=== PATIENT | female | born 2000 | race Caucasian/White ===

== ENCOUNTER 2023-08-17 14:56 | Emergency (ER) | payer BC, SELFPAY ==
[2023-08-17 14:59] VITALS: BP 122/82
[2023-08-17 15:18] LABS: % Basophils 0.6 % (0-2); % Eosinophils 7.3 % (0-6); % Immature Granulocytes 0.2 % (0-0.5); % Neutrophils 65.9 % (42.2-75.2); Absolute Eosinophils 0.5 10^3/uL (0-0.7); Absolute Lymphocytes 1.2 10^3/uL (1.2-3.4); Absolute Monocytes 0.5 10^3/uL (0.1-0.6); Absolute Neutrophils 4.3 10^3/uL (1.4-6.5); Hemoglobin 14.8 g/dL (12.0-16.0); Mean Corp Hgb Conc. 34.4 g/dL (33.0-37.0); Mean Corpuscular Hgb 30.9 pg (27.0-31.0); Mean Corpuscular Volume 89.8 fL (81.0-99.0); Mean Platelet Volume 9.5 fL (7.4-10.4); Nucleated Red Blood Cells % 0 %; Platelet Count 190 10^3/uL (130-400); Red Blood Cell Count 4.79 10^6/uL (4.20-5.40); Red Cell Dist. Width 11.9 % (11.5-14.5); White Blood Cell Count 6.5 10^3/uL (4.8-10.8)
[2023-08-17 15:32] LABS: HCG, Serum Qualitative Screen Negative
[2023-08-17 15:47] LABS: ALT (SGPT) 13 U/L (0-35); AST (SGOT) 25 U/L (14-36); Albumin 4.3 g/dl (3.5-5.0); Alkaline Phosphatase 44 U/L (38-126); Blood Urea Nitrogen 13 mg/dl (7-17); Calcium 8.9 mg/dl (8.4-10.2); Carbon Dioxide 27 mmol/L (22-30); Chloride 105 mmol/L (98-107); Glucose 99 mg/dl (70-99); Lipase 218 U/L (23-300); Potassium 4.1 mmol/L (3.5-5.1); Sodium 135 mmol/L (135-145); Total Bilirubin 0.5 mg/dl (0.2-1.3); Total Protein 6.9 g/dl (6.3-8.2); eGFR > 60.00
--- NOTE | 2023-08-17 16:04 | ED.GENMED ---
History of Present Illness
General
Chief Complaint: Abdominal Pain
Source: patient
Exam Limitations: none
Time Seen by Provider: 08/17/23 16:04
Nursing documentation reviewed up to this point in time: agreed with
Travel History
Have you had any contact with someone who has COVID-19?: No
Do you have any symptoms of coronavirus? Fever > 100 degrees, chills, cough, shortness of breath, sore throat, loss of taste or smell, muscle aches, or headache?: No
History of Present Illness
History of Present Illness:
23-year-old female with history of eating disorder that has improved since the end of her last semester in May 2023. presents stating for the past week she has had mid to left upper abdominal pain after eating for about 3 hours. Her appetite
is poor due to her symptoms.
There is no pain there now. She states when the pain comes its associated with radiating up from lower to mid back both sides, and burning up into her esophagus. She is also had a constant headache for the past 3 days and took Advil with no relief.
She feels constipated for the past week, her last bowel movement was 3 days ago
She saw her PCP yesterday and started on Prilosec 40 mg daily. She also had lab work yesterday and it ultrasound showing gallstones but no inflammation.
She states she has a friend who told her that she had ultrasound that only showed gallstones and had to have her gallbladder out anyway. She states her PCP told her she may need a CT scan. She states she just wishes she could eat.
Past History
Past History
ED Past Medical History: Other (Eating disorder)
ED Past Surgical History: Other (wisdom teeth)
Social History
Tobacco: Non-smoker
Alcohol: None
Drug: None
Personal: Single
Living: with family
Review of Systems
Review of Systems
Allergies reviewed?: Yes
All Other Systems: ROS reviewed and negative except as documented in HPI and ROS
Constitutional: Reports fatigue; Denies fever or chills
EENT: Denies sore throat
Respiratory: Denies cough or trouble breathing
Cardiac: Denies chest pain or syncope
ABD/GI: Reports abdominal pain, nausea, constipated and anorexia; Denies vomiting, diarrhea, bloody stools or black stools
: Reports no symptoms
Musculoskeletal: Reports no symptoms
Skin: Reports no symptoms
Neurological: Reports headache; Denies dizzy, weakness or numbness
Phy Exam
Physical Exam
Physical Exam:
GENERAL: No acute distress. A&Ox3.
CONSTITUTIONAL: Afebrile.
EYES: PERRL, conjunctivae normal
Neck: Supple
ENMT: moist mucus membranes, Pharynx nl
RESPIRATORY: Regular respirations, nonlabored, lungs clear.
CARDIOVASCULAR: Regular rate and rhythm, no murmurs, no rubs.
GI: Soft, nontender, normal BS
MUSCULOSKELETAL: Moves with ease. Well perfused.
SKIN: Warm, dry, pink
PSYCH: Normal mood and affect. Well kept, interactive and appropriate
NEUROLOGIC: Awake, alert and oriented. No focal neurological deficits
Course
Orders/Labs/Results
Orders:
Orders
08/17/23 15:05
Test Result ONCE
08/17/23 15:11
Complete Blood Count/With Diff Urgent
Comprehensive Metabolic Panel Urgent
HCG, Serum Qualitative Screen Urgent
Lipase Urgent
08/17/23 16:17
Iohexol [Omnipaque] See Protocol PO NOW STA
08/17/23 16:18
CT Abd/pel W Iv And Oral Contr Urgent
Comment:
Reason For Exam: upper abdominal pain
0.9% Sodium Chloride 1000 ml [Nss] 1,000 ml IV BOLUS
08/17/23 16:25
Ketorolac [Toradol] 15 mg IV NOW STA
08/17/23 18:00
Urinalysis Reflex To Culture Urgent
Date Specimen was Collected: 08/17/23
Time Specimen was Collected: 18:05
Abnormal Lab Results
08/17/23
15:11
Lymphocytes % 18.0 L %
(20.5-51.1)
Eosinophils % 7.3 H %
(0-6)
08/17/23 15:11
08/17/23 15:11
Vital Signs
Initial and Last Documented VS:
Initial Vital Signs
Temp Pulse Resp BP Pulse Ox
98.1 F 69 18 122/82 100
08/17/23 14:59 08/17/23 14:59 08/17/23 14:59 08/17/23 14:59 08/17/23 14:59
Last Documented Vital Signs
Temp Pulse Resp BP Pulse Ox
98.1 F 69 18 122/82 100
08/17/23 14:59 08/17/23 14:59 08/17/23 14:59 08/17/23 20:56 08/17/23 14:59
MDM/Problems Addressed
Differential Diagnosis Includes:
Constipation, GERD
MDM/Problems Addressed:
23-year-old female with history of eating disorder that has improved since the end of her last semester in May 2023. presents stating for the past week she has had mid to left upper abdominal pain after eating for about 3 hours. Her appetite
is poor due to her symptoms.
There is no pain there now. She states when the pain comes its associated with radiating up from lower to mid back both sides, and burning up into her esophagus. She is also had a constant headache for the past 3 days and took Advil with no relief.
She feels constipated for the past week, her last bowel movement was 3 days ago
She saw her PCP yesterday and started on Prilosec 40 mg daily. She also had lab work yesterday and it ultrasound showing gallstones but no inflammation.
She states she has a friend who told her that she had ultrasound that only showed gallstones and had to have her gallbladder out anyway. She states her PCP told her she may need a CT scan. She states she just wishes she could eat.
Afebrile
Abdomen benign
08/17/2023 1623 PM
CBC normal
CMP normal hCG negative
08/17/[address] abdomen pelvis with p.o. and IV contrast radiology report read: IMPRESSION: Moderate to large amount of stool within the colon, suggesting a degree constipation. Mild gaseous distention of the transverse colon.
The gallstone appears within normal limits by CT, with no evidence for calcified gallstones. Noncalcified gallstones may still be present.
Small amount of free fluid in pelvic cul-de-sac, likely physiologic.
�
*Critical Care Note
Total Time (30-74mins, 75-104mins- exclusive of procedures): Not Applicable
ED Attending Note
-
Portions of this chart may have been created with voice recognition software.� Occasional wrong word or��sound alike� substitutions may have occurred due to the inherent limitations of voice recognition software.
Discharge Plan
Departure
Patient Disposition: Home (Routine Discharge)
Date of Disposition: 08/17/23
Time of Disposition: 20:38
Patient with high blood pressure during this ER visit?: No
Condition: Good
Discharge Problem:
Epigastric abdominal pain, Constipation
Instructions: Constipation, Adult (DC), Abdominal Pain
Prescriptions:
New
ondansetron 4 mg tablet,disintegrating
4 mg PO Q8H PRN (Reason: nausea and vomiting) 5 Days Qty: 14 0RF
Referrals:
Yeimy Browne MD [Family Provider] - As needed
Activity Restrictions/Additional Instructions:
As we discussed, your abdominal CAT scan shows nothing worrisome, there is a large amount of stool in your colon indicating constipation.
Continue your Prilosec as ordered
I sent a prescription to your pharmacy for Zofran to use if needed for nausea
Interventions
Interventions:
*Risk Screen - Suicide Last Done: 08/17/23 14:59
*General Assessment Last Done: 08/17/23 14:59
*Neglect/Abuse Screening Last Done: 08/17/23 14:59
*Nursing Disposition Last Done: 08/17/23 20:56
[facility] Assessment Last Done: 08/17/23 17:21
Discharge Date and Time
Discharge Date/Time: 08/17/23 20:57
[2023-08-17] MEDS: OMNIPAQUE 50 ML PO (16:28)
[2023-08-17] MEDS: NSS 1000 IV (16:28)
[2023-08-17] MEDS: TORADOL 15 MG IV (16:30)
[2023-08-17 18:26] LABS: Urine Albumin Negative (Neg - Trace); Urine Bilirubin Negative (Negative); Urine Character Clear (Clear); Urine Color Straw; Urine Glucose Negative (Negative); Urine Ketone Negative (Negative); Urine Leukocyte Negative (Negative); Urine Nitrite Negative (Negative); Urine Occult Blood Negative (Negative); Urine Urobilinogen Negative (Neg - 1+); Urine pH 6.5 (5.0-9.0)
[2023-08-17 20:56] VITALS: BP 122/82
== END 2023-08-17 20:57 | disposition home or self-care (01) ==
LOC: EMR 14:56
PROVIDERS: Registered Nurse; EMERGENCY PHYSICIAN Emergency Medicine; FAMILY PHYSICIAN Family Medicine
DX: R10.13 Epigastric pain (principal); K59.00 Constipation, unspecified; R11.0 Nausea; R51.9 Headache, unspecified; K80.20 Calculus of gallbladder without cholecystitis without obstruction; F50.9 Eating disorder, unspecified
CPT/HCPCS: 99285; 96361; 96374; 74177; 80053; 81003; 83690; 84703; 85025; Q9967